=== PATIENT | male | born 1995 | race African-American/Black ===

== ENCOUNTER → 2016-10-22 | Outpatient (CLI) | payer BC, OTHER | LOC: COL.RAD 09:57 | DX: M43.07 Spondylolysis, lumbosacral region (principal); M48.07 Spinal stenosis, lumbosacral region ==

== ENCOUNTER → 2016-10-25 | Outpatient (CLI) | payer BC, OTHER | LOC: COL.RAD 13:56 | DX: M54.5 Low back pain (principal) ==

== ENCOUNTER → 2018-08-21 | Outpatient (CLI) | payer BC, OTHER | LOC: COL.RAD 12:26 | DX: S60.212A Contusion of left wrist, initial encounter (principal); Y93.61 Activity, american tackle football | CPT/HCPCS: A9585; Q9967 ==